=== PATIENT | male | born 1935 | race Caucasian/White ===

== ENCOUNTER 2016-05-29 20:48 | Emergency (ER) | payer OTHER ==
[2016-05-29] MEDS ORDERED: G.I. COCKTAIL PO ONE (21:38)
--- NOTE | 2016-05-29 22:32 | PROVIDER DOCUMENTATION ---
HPI-EENT General - General Chief Complaint: Foreign Body/Throat Stated Complaint: POSS. FOREIGN OBJECT IN THROAT, SORE THROAT Time Seen by Provider: 05/29/16 21:30 Source: patient Allergies/Adverse Reactions: Patient Allergies Allergy/AdvReac Type Severity Reaction Status Date / Time Mjkczoc-[id number] Reductase Allergy Severe muscle Verified 05/29/16 21:08 Inhibitor weakness clopidogrel bisulfate * Allergy RASH Verified 05/29/16 21:08 [From Plavix] Home Medications: Home Medication List Medication Instructions Recorded Confirmed Last Taken Type Atenolol 25 mg PO QAM 07/12/12 05/29/16 05/29/16 08:00 History Bimatoprost 0.03% Oph Solution 1 drop LEFT EYE DAILY 07/12/12 05/29/16 05/29/16 08:00 History [Lumigan 0.03% Oph Solution] Ubidecarenone [Co Q-10] 100 mg PO QHS 07/12/12 05/29/16 05/28/16 History Lisinopril [Zestril] 2.5 mg PO QAM 08/22/13 05/29/16 05/29/16 08:00 History Rosuvastatin Calcium [Crestor] 5 mg PO EVERY OTHER DAY 08/22/13 05/29/16 History Ascorbic Acid [Vitamin C] 250 mg PO QAM 10/08/15 05/29/16 05/29/16 08:00 History Doxepin [Sinequan] 50 mg PO QHS 10/08/15 05/29/16 05/28/16 History Brinzolamide/Brimonidine Tart 1 drop BOTH EYES BID 05/29/16 05/29/16 05/29/16 08 :00 History [Simbrinza 1%-0.2% Eye Drops] Bromfenac Sodium [Prolensa] 1 drop LEFT EYE QAM 05/29/16 05/29/16 05/29/16 08: 00 History Isosorbide Mononitrate E.r. [Imdur] 30 mg PO QAM 05/29/16 05/29/16 05/29/16 08: 00 History Melatonin 5 mg PO QHS 05/29/16 05/29/16 05/28/16 History - History of Present Illness-EENT General Nature of Presenting Problem: 81 yom c/o coughing and coughed up sputum that got hung in his throat and caused him to have a sore throat. EENT Location: reports: throat Quality of Pain: reports: burning Severity: denies: mild, moderate, severe Onset/Duration: reports: abrupt Timing: denies: still present, improving, gone now, resolved prior to arrival, intermittent, constant, changing over time, getting worse, other Prearrival Treatment: Not Used no prearrival treatment, Not Used over the counter meds, Not Used prescription meds, Not Used squeezing nostrils, Not Used nasal packing, Not Used flushing eyes, Not Used other Associated Symptoms: reports: cough, sore throat. denies: denies symptoms, change in hearing, drooling, ear drainage, facial pain/swelling, fever, malaise , nasal congestion/drainage, poor fluid intake, poor solids intake, sinus infection, tooth pain, voice change, other Other injuries?: denies: neck, head, back, other Locality of Occurance: Home Similar Symptoms Previously?: No Recently seen or treated by another doctor?: No - Eyes Eye Problem Symptoms: denies: eye pain, decrease vision, blurred vision, double vision, curtain, other, burning, itching, sensitivity to light, redness, matting , orbital swelling, eyelid swelling, foreign body sensation - Ears Ear Problem Symptoms: reports: none - Throat/Dental Throat/Dental Problem Symptoms: reports: none Recently seen a dentist or have an appointment?: No Review of Systems - Adult - REVIEW OF SYSTEMS - ADULT Constitutional: reports: see HPI Eyes: reports: no symptoms reported Ears, Nose, Mouth & Throat: reports: see HPI, throat pain. denies: no symptoms reported, ear discharge, ear pain, hearing loss, tinnitus, epistaxis, sinus problem, nose pain, loose teeth, mouth/dental pain, mouth swelling, hoarseness, throat swelling, other Cardiovascular: reports: no symptoms reported. denies: see HPI, chest pain, edema, heart murmur, irregular heart rate, orthopnea, palpitations, poor circulation, PND, syncope, other Respiratory: reports: see HPI Gastrointestinal: reports: no symptoms reported. denies: see HPI, abdominal pain, hematemesis, constipation, diarrhea, difficulty swallowing, frequent heartburn, nausea, poor appetite, rectal bleeding, vomiting, other Musculoskeletal: reports: no symptoms reported. denies: see HPI, bone pain, back pain, frequent leg cramps, joint pain, joint swelling, muscle aches, muscle weakness, neck pain, other All Other Systems: Reviewed and Negative Past History - Adult - PAST MEDICAL HISTORY-ADULT Review of Records: reports: Old Records Reviewed, Nursing Assessment Review, Medications Reviewed, Social history reviewed & non-contributory. - IMMUNIZATION STATUS Childhood Immunizations: See Nurse Assessment Flu Vaccine: See Nurse Assessment Physical Exam- EENT - Physical Exam EENT Initial Vital Signs Reviewed: Yes General Appearance: appears well, alert, no apparent distress. negative: mild distress, moderate distress, severe distress, cachetic, obese, thin, anxious, lethargic, slow to respond, obtunded, combative, other Eye Exam: bilateral eye: normal inspection, PERRL, EOMI Ear Exam: bilateral ear: auricle normal, canal normal, TM normal Nasal Exam: normal inspection Throat Exam: normal mouth inspection, pharynx normal Neck: non-tender, full range of motion, supple, normal inspection Respiratory: chest non-tender, lungs clear, normal breath sounds, no pleuratic chest pain, no respiratory distress, no accessory muscle use Cardiovascular: normal peripheral pulses, regular rate, rhythm, no edema, no gallop, no JVD, no murmur Abdominal Exam: normal bowel sounds, non tender, soft, no organomegaly, no pulsatile mass Lymphatic: no adenopathy Back Exam: normal inspection, no CVA tenderness, no vertebral tenderness Extremity: normal range of motion, non-tender, normal gait, normal inspection, no pedal edema, no calf tenderness, normal capillary refill Integumentary: normal color, normal turgor, warm/dry Neurologic: grossly normal Psych/Mental Status: normal mood/affect, normal thought content, normal thought process, oriented x 3 Progress - PLAN OF CARE/RESULTS Progress/Plan/Lab Results: Orders Category Date Time Status CHEST-2 VIEWS [RAD] Stat Exams 05/29/16 21:39 Taken Lido/Francis Alk/Al&mg Hydrox [G.i. Cocktail] Med 05/29/16 21:38 Discontinued 30 ml PO NOW ONE Vital Signs Temp Pulse Resp BP Pulse Ox 05/29/16 22:54 97.7 F 63 18 149/84 97 03/09/17 21:04 97.8 F 63 18 143/76 97 Eivwtpb-Tnj-Aal Reductase Inhibitor Allergy (Severe, Verified 05/29/16 21:08) muscle weakness clopidogrel bisulfate * [From Plavix] Allergy (Verified 05/29/16 21:08) RASH Atenolol 25 mg PO QAM 07/12/12 Bimatoprost 0.03% Oph Solution [Lumigan 0.03% Oph Solution] 1 drop LEFT EYE DAILY 07/12/12 Ubidecarenone [Co Q-10] 100 mg PO QHS 07/12/12 Lisinopril [Zestril] 2.5 mg PO QAM 08/22/13 Rosuvastatin Calcium [Crestor] 5 mg PO EVERY OTHER DAY 08/22/13 Ascorbic Acid [Vitamin C] 250 mg PO QAM 10/08/15 Doxepin [Sinequan] 50 mg PO QHS 10/08/15 Brinzolamide/Brimonidine Tart [Simbrinza 1%-0.2% Eye Drops] 1 drop BOTH EYES BID 05/29/16 Bromfenac Sodium [Prolensa] 1 drop LEFT EYE QAM 05/29/16 Isosorbide Mononitrate E.r. [Imdur] 30 mg PO QAM 05/29/16 Melatonin 5 mg PO QHS 05/29/16 - XRAY 1 XRAY Study: Chest Impression: Normal (Normal per radiologist.) Departure - Departure Time of Disposition Order: 22:30 DIAGNOSIS: Cough DIAGNOSIS: (Ruled Out): Foreign body Disposition: HOME 01 Certified Medical Emergency: Emergent Condition: Stable Additional Instructions: ED Follow Up Instructions: You have been treated by a care provider in the Emergency Department. These instructions are being provided to you so you can have an understanding of how to care for yourself upon discharge. Upon discharge from the Emergency Department, you are responsible for making arrangements for follow-up care by a physician of your choice. Take all prescribed medications as directed. Return to the Emergency Department immediately for any new or worsening symptoms. You may call the Physician Referral phone number at [phone] to obtain a list of Physicians who are taking new patients. Referrals: Jac Salas DO [Primary Care Provider] - Instructions: Cough, Adult, [id number]
[2016-05-29 22:56] VITALS: BP 149/84
--- NOTE | 2016-05-30 07:37 | Diag Imaging Result Document ---
PROCEDURE NAME: CHEST-2 VIEWS - 05/29/2016 FRONTAL AND LATERAL CHEST, TWO VIEWS: COMPARISON: 08/22/2013. FINDINGS: The lungs are well expanded. The heart is not enlarged. The vessels are not distended. There are no infiltrates. No pleural effusions. Mild scoliosis. IMPRESSION: No pneumonia.
== END 2016-05-29 22:54 | disposition home or self-care (01) ==
LOC: ED 20:48
DX: R05 Cough (principal); J02.9 Acute pharyngitis, unspecified; R09.3 Abnormal sputum; Z79.899 Other long term (current) drug therapy
CPT/HCPCS: 71020; 99283